=== PATIENT | male | born 2005 | race Caucasian/White ===

== ENCOUNTER 2023-02-28 17:34 | Emergency (ER) | payer BC ==
[2023-02-28] MEDS ORDERED: Boostrix 0.5 ML (Tdap) VIAL (>/=7 yrs of age) ONE (18:53)
== END 2023-02-28 19:26 | disposition home or self-care (01) ==
LOC: CSHERS 17:34
DX: M79.5 Residual foreign body in soft tissue (principal); F17.210 Nicotine dependence, cigarettes, uncomplicated
CPT/HCPCS: 71046; 90471; 90715